=== PATIENT | female | born 1955 | race Hispanic/Latino ===

== ENCOUNTER 2020-06-26 09:43 | Outpatient (CLI) | payer BC ==
[2020-06-26 10:23] LABS: Hematocrit 40.8 % (30.3-42.9); Hemoglobin 13.6 gm/dl (10.1-14.3); Mean Corpuscular HGB Conc 33 % (30-34); Mean Corpuscular Volume 96 fl (79-97); Platelet Count 166 K/mm3 (140-440); Red Blood Count 4.26 M/mm3 (3.65-5.03); Red Cell Distribution Width 15.3 % (13.2-15.2)
[2020-06-26 10:34] LABS: ABG Base Excess -3.2 mmol/L (-2.0-3.0); ABG HCO3 21.3 mmol/L (20.0-26.0); ABG Methemoglobin 0.5 % (0.0-1.5); ABG Oxygen Saturation 96.5 % (95.0-99.0); ABG PCO2 36.3 mm Hg; ABG PH 7.386 pH Units (7.350-7.450); ABG PO2 81.8 mm Hg (80.0-90.0)
[2020-06-26 10:37] LABS: INR 0.99 (0.87-1.13)
[2020-06-26 10:38] LABS: Partial Thromboplastin Time 25.9 Sec. (24.2-36.6)
[2020-06-26 10:49] LABS: Creatine Kinase MB 2.6 ng/mL (0.0-4.0)
[2020-06-26 10:51] LABS: Albumin 4.1 g/dL (3.9-5); C-Reactive Protein 0.2 mg/dL (0.00-1.30); Calcium 9.3 mg/dL (8.4-10.2); Chol/HDL Ratio 2.69 %
--- NOTE | 2020-06-26 12:17 | XRay Report ---
CHEST 2 VIEWS INDICATION: FOLLOW UP ON PNEUMONIA. COMPARISON: None FINDINGS: Support devices: None. Heart: Within normal limits. Lungs/pleura: No acute air space or interstitial disease. No pneumothorax. Additional findings: None. IMPRESSION: Unremarkable chest films. No evidence for pneumonia. Signer Name: Antelmo Mckee Jr, MD Signed: 06/26/2020 12:13 PM Workstation Name: [id number]
== END 2020-06-26 09:44 | disposition home or self-care (01) ==
LOC: XRAY 09:43
PROVIDERS: ATTEND Internal Medicine
DX: J45.909 Unspecified asthma, uncomplicated (principal); K21.9 Gastro-esophageal reflux disease without esophagitis; G47.30 Sleep apnea, unspecified; E78.00 Pure hypercholesterolemia, unspecified
CPT/HCPCS: 36415; 71046; 80053; 80061; 82550; 82553; 82728; 82803; 83615; 83880; 84436; 84443; 84484; 85027; 85379; 85610; 85730; 86140

== ENCOUNTER 2020-08-07 07:30 | Outpatient (CLI) | payer BC ==
[2020-08-07 08:17] LABS: C-Reactive Protein 0.2 mg/dL (0.00-1.30)
--- NOTE | 2020-08-07 13:11 | Vascular Lab Report ---
DUPLEX DOPPLER LOWER EXTREMITY VEINS, BILATERAL INDICATION / CLINICAL INFORMATION: Localized swelling, mass and lump, lower limb, bilateral. TECHNIQUE: Duplex doppler imaging was performed through the veins of both lower extremities using venous daisy foster and other maneuvers. COMPARISON: None available. FINDINGS: RIGHT COMMON FEMORAL VEIN: Negative. RIGHT FEMORAL VEIN: Negative. RIGHT POPLITEAL VEIN: Negative. RIGHT CALF VEINS: Negative. LEFT COMMON FEMORAL VEIN: Negative. LEFT FEMORAL VEIN: Negative. LEFT POPLITEAL VEIN: Negative. LEFT CALF VEINS: Negative. ADDITIONAL FINDINGS: None. IMPRESSION: 1. No sonographic evidence for DVT in either lower extremity. Signer Name: Ricardo Winslow MD FACR Signed: 08/07/2020 1:07 PM Workstation Name: [id number]
== END 2020-08-07 07:31 | disposition home or self-care (01) ==
LOC: VAS 07:30
PROVIDERS: ATTEND Internal Medicine
DX: R22.43 Localized swelling, mass and lump, lower limb, bilateral (principal)
CPT/HCPCS: 36415; 82550; 82728; 83615; 84484; 85379; 86140; 93970